=== PATIENT | female | born 1970 | race Caucasian/White ===

== ENCOUNTER 2016-10-11 10:30 | Emergency (ER) | payer OTHER ==
[2016-10-11 10:41] VITALS: BP 123/71
[2016-10-11] MEDS ORDERED: Albuterol/Ipratropium NEB.SOL* Albuterol 2.5 MG/Ipratropium 0.5 MG 3 ML INH ONE (10:48)
--- NOTE | 2016-10-11 11:03 | RAD ---
HISTORY: Cough COMPARISONS: April 18, 2013 VIEWS: 4: Frontal dual-energy and lateral views of the chest. FINDINGS: CARDIOMEDIASTINAL SILHOUETTE: The cardiomediastinal silhouette is normal. ANGELA: The angela are normal. PLEURA: The costophrenic angles are sharp. No pleural abnormalities are noted. LUNG PARENCHYMA: The lungs are clear. ABDOMEN: The upper abdomen is clear. There is no subphrenic gas. BONES AND SOFT TISSUES: No bone or soft tissue abnormalities are noted. OTHER: None. IMPRESSION: NO ACTIVE CARDIOPULMONARY DISEASE.
--- NOTE | 2016-10-11 11:58 | UC ---
Throat Pain/Nasal Ubaldo HPI - HPI Summary HPI Summary: FIVE DAYS OF PRODUCTIVE COUGH, LOWER RIB PAIN WITH COUGH, NASAL CONGESTION, WHEEZING. - History of Current Complaint Chief Complaint: UCRespiratory Stated Complaint: CHEST CONGESTION, COUGH Time Seen by Provider: 10/11/16 10:42 Hx Obtained From: Patient Hx Last Menstrual Period: 10/04/16 Onset/Duration: Gradual Onset, Lasting Days, Still Present Severity: Moderate Pain Intensity: 5 Pain Scale Used: 0-10 Numeric Cough: Productive Associated Signs & Symptoms: Positive: Hoarseness, Sinus Discomfort, Nasal Discharge - Epiglottits Risk Factors Epiglottis Risk Factors: Negative - Allergies/Home Medications Allergies/Adverse Reactions: Allergies Allergy/AdvReac Type Severity Reaction Status Date / Time Codeine AdvReac Mild nightmares Verified 10/11/16 10:41 Home Medications: Home Medications traZODone TAB* [Desyrel TAB*] 50 mg PO BEDTIME 10/11/16 [History Confirmed 10/11] PMH/Surg Hx/FS Hx/Imm Hx Previously Healthy: Yes Other History Of: Negative For: HIV, Hepatitis B, Hepatitis C, Anticoagulant Therapy - Surgical History Surgical History: Yes Surgery Procedure, Year, and Place: appendectomy - Family History Known Family History: Negative: Hypertension - Social History Occupation: Employed Full-time Lives: With Family Alcohol Use: Occasionally Substance Use Type: None Smoking Status (MU): Heavy Every Day Tobacco Smoker Type: Cigarettes Amount Used/How Often: 3/4 pack daily Cessation Counseling: Patient Advised to Stop - Immunization History Most Recent Influenza Vaccination: not this season Review of Systems Constitutional: Negative Skin: Negative Eyes: Negative ENT: Nasal Discharge, Sinus Congestion, Sinus Pain/Tenderness Respiratory: Cough Cardiovascular: Negative Gastrointestinal: Negative Genitourinary: Negative Motor: Negative Neurovascular: Negative Musculoskeletal: Negative Neurological: Negative Psychological: Negative All Other Systems Reviewed And Are Negative: Yes Physical Exam Triage Information Reviewed: Yes Appearance: Well-Appearing, No Pain Distress, Well-Nourished Vital Signs: Initial Vital Signs Temp 97.9 F 10/11/16 10:36 Pulse 84 10/11/16 10:36 Resp 14 10/11/16 10:36 BP 123/71 10/11/16 10:36 Pulse Ox 97 10/11/16 10:36 Vital Signs Reviewed: Yes Eye Exam: Normal ENT: Positive: Normal ENT inspection, Nasal congestion, TM bulging, TM dull Dental Exam: Normal Neck exam: Normal Neck: Positive: Supple, Nontender, No Lymphadenopathy Respiratory: Positive: Chest non-tender, No respiratory distress, No accessory muscle use, Wheezing Cardiovascular Exam: Normal Cardiovascular: Positive: RRR, No Murmur, Pulses Normal Abdominal Exam: Normal Musculoskeletal Exam: Normal Musculoskeletal: Positive: Strength Intact Neurological Exam: Normal Psychological Exam: Normal Skin Exam: Normal Throat Pain/Nasal Course/Dx - Differential Dx/Diagnosis Differential Diagnosis/HQI/PQRI: Sinusitis, Tonsillitis, URI Provider Diagnoses: SINUSITIS; BRONCHITIS Discharge - Discharge Plan Condition: Stable Disposition: HOME Prescriptions: Albuterol HFA INHALER* [Ventolin HFA Inhaler*] 1 - 2 puff INH Q6H PRN #1 mdi PRN Reason: Wheezing DOXYcycline CAP(*) [DOXYcycline 100MG CAP(*)] 100 mg PO BID #20 cap predniSONE TAB* [Deltasone TAB*] 10 mg PO DAILY #28 tab Patient Education Materials: Sinusitis (ED), Acute Bronchitis (ED), Bronchospasm (ED) Referrals: Kristyn Prieto MD [Primary Care Provider] -
== END 2016-10-11 11:35 | disposition home or self-care (01) ==
LOC: UCCORT 10:30
DX: J32.9 Chronic sinusitis, unspecified (principal); J40 Bronchitis, not specified as acute or chronic; Z88.5 Allergy status to narcotic agent; F17.210 Nicotine dependence, cigarettes, uncomplicated
CPT/HCPCS: 71020; 99212; A9270-GY; G0463

== ENCOUNTER 2017-03-19 09:54 | Emergency (ER) | payer OTHER ==
[2017-03-19 10:49] VITALS: BP 142/90
--- NOTE | 2017-03-19 10:57 | UC ---
Respiratory Complaint HPI - HPI Summary HPI Summary: 46F presents with cough for 3 days. has history of asthma and ran out of inhaler. is a smoker. She admits to sore throat and sinus congestion. She denies any ear pain. She admits to occasionally SOB but denies any chest pain. She denies any muscle aches or fevers. She tried her nebulizer yesterday but it made it worst the cough. - History of Current Complaint Chief Complaint: UCGeneralIllness Stated Complaint: SORE THROAT,COUGH,CONGESTION Time Seen by Provider: 03/19/17 10:50 Hx Last Menstrual Period: ablation Pain Intensity: 2 - Allergies/Home Medications Allergies/Adverse Reactions: Allergies Allergy/AdvReac Type Severity Reaction Status Date / Time No Known Allergies Allergy Verified 03/19/17 10:49 Home Medications: Home Medications Albuterol HFA INHALER* [Ventolin HFA Inhaler*] 2 puff INH Q4H PRN 03/19/17 [ History Confirmed 03/19/17] Bp Med 1 tab PO DAILY 03/19/17 [History Confirmed 03/19/17] Omeprazole CAP* [Prilosec CAP* 20 MG] 20 mg PO DAILY 03/19/17 [History Confirmed 03/19/17] PMH/Surg Hx/FS Hx/Imm Hx Endocrine History: Other Other Endocrine History: no DM Cardiovascular History: Hypertension Respiratory History: Asthma Other History Of: Negative For: HIV, Hepatitis B, Hepatitis C, Anticoagulant Therapy - Surgical History Surgical History: Yes Surgery Procedure, Year, and Place: appendectomy. Ablation - Family History Known Family History: Negative: Hypertension - Social History Alcohol Use: Occasionally Substance Use Type: None Smoking Status (MU): Heavy Every Day Tobacco Smoker Type: Cigarettes Amount Used/How Often: 3/4 pack daily - Immunization History Most Recent Influenza Vaccination: not this season Review of Systems Constitutional: Negative ENT: Sore Throat, Sinus Congestion Respiratory: Shortness Of Breath, Cough Cardiovascular: Negative All Other Systems Reviewed And Are Negative: Yes Physical Exam Triage Information Reviewed: Yes Appearance: Well-Appearing Vital Signs: Initial Vital Signs Temp 98.5 F 03/19/17 10:43 Pulse 90 03/19/17 10:43 Resp 16 03/19/17 10:43 BP 142/90 03/19/17 10:43 Pulse Ox 98 03/19/17 10:43 Eye Exam: Normal ENT: Positive: Pharynx normal, Nasal congestion, TMs normal Neck: Positive: Supple, Nontender, No Lymphadenopathy Respiratory: Positive: Decreased breath sounds, Wheezing - mild Cardiovascular: Positive: RRR Abdomen Description: Positive: Nontender, Soft Bowel Sounds: Positive: Present Musculoskeletal Exam: Normal Neurological Exam: Normal Psychological Exam: Normal Skin Exam: Normal UC Diagnostic Evaluation - Laboratory O2 Sat by Pulse Oximetry: 98 Respiratory Course/Dx - Course Course Of Treatment: 46F presents with cough for 3 days. has history of asthma and ran out of inhaler. is a smoker. She admits to sore throat and sinus congestion. She denies any ear pain. She admits to occasionally SOB but denies any chest pain. She denies any muscle aches or fevers. She tried her nebulizer yesterday but it made it worst the cough. on exam pharynx normal. lungs mild wheezing. no resp distress on exam. due to asthma with smoking will treat with zpack, inhaler and prednisone. medication reviewed. patient has elevated blood pressure so will have follow up with primary as has history of HTN and is on medication. patient understand and agrees with plan. - Differential Dx/Diagnosis Differential Diagnosis/HQI/PQRI: Bronchitis, Exacerbation Of COPD, Influenza, Lower Resp Infection, Pneumothorax Provider Diagnoses: upper respiratory infection, asthma, elevated blood pressure Discharge - Discharge Plan Condition: Good Disposition: HOME Prescriptions: Albuterol HFA INHALER* [Ventolin HFA Inhaler*] 1 puff INH Q4H PRN #1 mdi PRN Reason: Sob/Wheezing Azithromycin TAB* [Zithromax TAB (Z-ROMAINE) 250 mg #6 tabs] 2 tab PO .TODAY, THEN 1 DAILY #1 romaine predniSONE TAB* [Deltasone TAB*] 50 mg PO DAILY #5 tab Patient Education Materials: Upper Respiratory Infection (ED) Referrals: Kristyn Prieto MD [Primary Care Provider] - Additional Instructions: Use inhaler up to two puffs every 4 hours for cough and wheezing Take steroid once a day for 5 days Take antibiotic two tablet first day and one tablet next 4 days Take Tylenol or ibuprofen for pain every 6 hours Return to ED if develop severe shortness of breath, worsening chest pain, or any new or worsening symptoms
== END 2017-03-19 11:05 | disposition home or self-care (01) ==
LOC: UCCORT 09:54
DX: J06.9 Acute upper respiratory infection, unspecified (principal); J45.909 Unspecified asthma, uncomplicated; I10 Essential (primary) hypertension; F17.210 Nicotine dependence, cigarettes, uncomplicated
CPT/HCPCS: 99212; G0463

== ENCOUNTER 2017-07-23 10:45 | Emergency (ER) | payer OTHER ==
[2017-07-23 12:19] VITALS: BP 126/80
--- NOTE | 2017-07-23 12:39 | UC ---
Lower Extremity/Ankle HPI - HPI Summary HPI Summary: 47 y/o female presents to the urgent care c/o left lateral side of ankle w/ pain for the past 3 days. Pt reports she noticed a bump in the lateral side that is swollen and painful at touch. - History of Current Complaint Chief Complaint: UCLowerExtremity Stated Complaint: LT ANKLE COMP Time Seen by Provider: 07/23/17 12:36 Hx Obtained From: Patient Hx Last Menstrual Period: ablation Onset/Duration: Gradual Onset Pain Intensity: 2 - Allergies/Home Medications Allergies/Adverse Reactions: Allergies Allergy/AdvReac Type Severity Reaction Status Date / Time No Known Allergies Allergy Verified 07/23/17 12:02 Home Medications: Home Medications Amlodipine Besylate [Norvasc 5 mg tab] 5 mg PO DAILY 07/23/17 [History Confirmed 07/23/17] Ibuprofen TAB* [Advil TAB*] 400 mg PO Q6H PRN 07/23/17 [History Confirmed ] LevoCETirizine TAB (NF) [Xyzal TAB (NF)] 5 mg PO DAILY PRN 07/23/17 [History Confirmed 07/23/17] PMH/Surg Hx/FS Hx/Imm Hx Other History Of: Negative For: HIV, Hepatitis B, Hepatitis C, Anticoagulant Therapy - Surgical History Surgical History: Yes Surgery Procedure, Year, and Place: appendectomy. Ablation - Family History Known Family History: Negative: Hypertension - Social History Alcohol Use: Occasionally Substance Use Type: None Smoking Status (MU): Heavy Every Day Tobacco Smoker Type: Cigarettes Amount Used/How Often: 1 pack daily - Immunization History Most Recent Influenza Vaccination: not this season Physical Exam - Summary Physical Exam Summary: Vital Signs Reviewed: Yes Appearance: Well-Appearing, No Pain Distress, Well-Nourished, Eyes: Positive: Conjunctiva Clear - PERRLA< LADY, fundi grossly WNL ENT: Positive: Normal ENT inspection, Hearing grossly normal, Pharynx normal, TMs normal, Uvula midline Neck: Positive: Supple, Nontender, No Lymphadenopathy Respiratory: Positive: Chest non-tender, Lungs clear, Normal breath sounds, No respiratory distress Cardiovascular: Positive: RRR, No Murmur, Pulses Normal, Brisk Capillary Refill Abdomen Description: Positive: Nontender, No Organomegaly, Soft. Negative: CVA Tenderness (R), CVA Tenderness (L) Bowel Sounds: Positive: Present Extremities: R/L extremity with/without deformity or asymmetry when compared to the R/L. No soft tissue swelling or edema. No overlying erythema, warmth, discoloration. No lesions or break in skin integrity. Diameter of calves cm. Soft tissues of posterior lower legs are soft, supple, nontender and no palpable cords or evidence of thrombophlebitis. No evidence of gangrene or compartment syndrome. Medial thigh is without soft tissue swelling or tender to palpation. Negative Homans sign. Possible superficial thrombophlebitis with palpable, tender cords. No proximal lymphangitis or lymphadenopathy. Neurological Exam: Normal Psychological Exam: Normal Skin Exam: Normal Triage Information Reviewed: Yes Vital Signs: Initial Vital Signs Temp 98.8 F 07/23/17 12:05 Pulse 75 07/23/17 12:05 Resp 16 07/23/17 12:05 BP 126/80 07/23/17 12:05 Pulse Ox 98 07/23/17 12:05 Lower Extremity Course/Dx - Differential Dx/Diagnosis Provider Diagnoses: 1- left distal lower leg thrombophlebitis Discharge - Discharge Plan Condition: Stable Disposition: HOME Prescriptions: Aspirin TAB* [Aspirin 325 MG TAB*] 325 mg PO BID #14 tab Patient Education Materials: Superficial Thrombophlebitis (ED) Referrals: Kristyn Prieto MD [Primary Care Provider] - 1 Week Additional Instructions: 1-Please take Aspirin PO as instructed after meals to alleviate pain and swelling. Increase fluid intake, eat well, rest and avoid strenuous exercise or standing for long period of time. elevate your leg. 2- Apply warm compresses to alleviate symptoms. 3-If symptoms do not improve or worsen please f/u with your PCP for further evaluation and treatment. - Billing Disposition and Condition Condition: STABLE Disposition: Home
== END 2017-07-23 13:10 | disposition home or self-care (01) ==
LOC: UCCORT 10:45
DX: I80.3 Phlebitis and thrombophlebitis of lower extremities, unspecified (principal); F17.210 Nicotine dependence, cigarettes, uncomplicated
CPT/HCPCS: 99212; G0463

== ENCOUNTER 2018-08-19 09:50 | Day surgery (SDC) | payer OTHER ==
[~2018-08-19 09:50] MED LIST: Buffered Lidocaine 1% SYRIN* 1 ML/SYRINGE INTRADERM ONE; Dexamethasone IV* 4 MG/ML 1 ML (4 MG) IV SLOW PU ONE; Famotidine IV* 10 MG/ML 2 ML (20 mg) IV SLOW PU ONE; Lactated Ringers 1000 ML Bag* 1,000 ML IV SCH; Sodium Citrate/Citric Acid* 15 ML UDC PO ONE
[2018-08-19] MEDS ORDERED: Dexamethasone IV* 4 MG/ML 1 ML (4 MG) ONE (10:00)
[2018-08-19] MEDS ORDERED: Famotidine IV* 10 MG/ML 2 ML (20 mg) ONE (10:01)
[2018-08-19] MEDS ORDERED: Bupivacaine 0.25% SDV PF* 10 ML VIAL INJ ONE ×2 (11:45→12:43)
[2018-08-19] MEDS ORDERED: fentaNYL* 50 MCG/ML 2 ML VIAL (100 MCG VIAL) ONE (12:10)
[2018-08-19] MEDS ORDERED: Propofol* 10 MG/ML 20 ML BTL ONE ×2 (12:10→12:21)
[2018-08-19] MEDS ORDERED: Lidocaine 2% PF * 5 ML VIAL ONE (12:10)
[2018-08-19] MEDS ORDERED: Midazolam* 1 MG/ML 2 ML VIAL (2 MG) ONE (12:17)
[2018-08-19] MEDS ORDERED: ceFAZolin 2 GM in NS PREMIX(*) 2 GM/100 ML BAG IVPB ONE (12:34)
[2018-08-19] MEDS ORDERED: Ondansetron INJ* 2 MG/ML VIAL IV PRN (13:10)
[2018-08-19] MEDS ORDERED: Ketorolac INJ* 30 MG/ML 1 ML VIAL IV PRN (13:10)
[2018-08-19] MEDS ORDERED: fentaNYL* 50 MCG/ML 2 ML VIAL (100 MCG VIAL) IV PRN (13:10)
[2018-08-19] MEDS ORDERED: Naloxone* 0.4 MG/ML 1 ML VIAL IV PRN (13:10)
[2018-08-19 14:12] VITALS: BP 126/90
--- NOTE | 2018-08-19 14:45 | OP ---
DATE OF OPERATION: 08/19/18 - [facility] DATE OF : 70 SURGEON: Eduardo Hurtado MD. MAPLE SYRUP MAKER: OMER An. An court assistant was needed for the entirety of the procedure to aid in positioning of the arm. ANESTHESIOLOGIST: Dr. Wilkins. ANESTHESIA: General. PRE-OP DIAGNOSIS: Right index finger deep soft tissue mass at the site of the flexor digitorum profundus tendon insertion. POST-OP DIAGNOSIS: Right index finger deep soft tissue mass at the site of the flexor digitorum profundus tendon insertion. OPERATIVE PROCEDURES: 1. Excision of right index finger deep soft tissue mass at the insertion of the FDP tendon. 2. Repair of the right index finger flexor digitorum profundus tendon with 2-0 Prolene pull-through suture. INDICATIONS: Viv is 48. She has an extremely painful mass identified on MRI at the insertion of the FDP tendon. I told her I would probably have to release the majority of the tendon to be able to excise the mass. She wanted me to do it as it was extremely painful. She understands the risk of tendon rupture necessitating either 2-stage repair or probably a fusion of the DIP joint. She wants to proceed. ESTIMATED BLOOD LOSS: 2 mL. COMPLICATIONS: None. FINDINGS: See above and below. DESCRIPTION OF PROCEDURE: Viv was seen in the preoperative holding area. The correct side, site, and procedure were identified. We came back to the operating room. The arm was prepped and draped in the usual fashion. A time- out was performed. I performed a digital block proximally with 0.25% plain Marcaine. We then placed the arm in the lead hand. I made a Bryanna incision over the DIP joint of the right index finger, starting in the midline centrally and then raising an ulnarly based flap. That was sewn back with 4-0 nylon suture as the flaps raised right off the flexor tendon sheath. The digital nerve was protected. The mass was readily apparent. I placed in Ragnell retractors. I used the [place] blade to perform a marginal excision. The mass was at the insertion and then draped over the radial aspect of the volar plate. There was some erosion of the volar plate proximally and distally. I excised it in its entirety and handed off as specimen. Once I had excised it, about 80% of the tendon had been released. I placed a 4-0 Ethibond suture in the end of the tendon just to keep it from retracting. I went ahead and placed a 2-0 Prolene whipstitch at the last 1.5 cm to 2 cm of the tendon. I used Werner needles through the bone and exiting out the nail plate dorsally through the sterile matrix to set maximum tension as I tied the 2-0 Prolene up over the nail plate dorsally to repair the tendon. I did go ahead and try to augment that with another 3-0 Prolene suture, but after I put that in, there was just too much tension on the tendon repair and so I just removed that and then it had excellent tension, so I left it with just the one pull-through suture. After the tendon bit had been repaired and I had removed the mass, I was very pleased with the repair. Please note that I had done everything possible to excise anything that looked like it could be related to the mass during the excision and I had roughened up the bony footprint of the tendon insertion before I had passed the Werner needles through. There were some reactive changes in the palmar aspect of the distal phalanx where the mass had been sitting. This was all removed and freshened up with the curette and rongeur. With the mass excised and the tendon repaired, we irrigated out the wound. Skin was closed with 4-0 nylon suture. A dorsal blocking splint with the wrist in neutral to slight flexion and the MP joints in full flexion and the IP joint straight was applied. Tourniquet was deflated. The finger pinked up immediately. She was taken to the recovery room in stable condition. [id number]/[facility] #: [id number] CHANTE
== END 2018-08-19 14:28 | disposition home or self-care (01) ==
LOC: OREAST 09:50
PROVIDERS: ATTEND Orthopaedic Surgery Hand Surgery
DX: D21.11 Benign neoplasm of connective and other soft tissue of right upper limb, including shoulder (principal); I10 Essential (primary) hypertension; J45.909 Unspecified asthma, uncomplicated; Z72.0 Tobacco use; K21.9 Gastro-esophageal reflux disease without esophagitis
CPT/HCPCS: 81025; 88305; J0690; J1100; J2250; J2704; J3010; J3490

== ENCOUNTER 2018-12-07 14:06 | Emergency (ER) | payer OTHER ==
--- NOTE | 2018-12-07 14:18 | UC ---
Respiratory Complaint HPI - HPI Summary HPI Summary: 48 yo female presents with cough. She tells me that for the past 1.5 weeks she has had an intermittently productive cough. Over the last 2-3 days has had right rib pain that is worse with deep breaths, coughing, and twisting. She has felt feverish, but has not taken her temperature. She has a history of asthma/ copd and has albuterol inhaler and nebulizer at home that she has been using with short term relief. She is still smoking daily. Denies sinus symptoms, sore throat, SOB, chest pain, abdominal pain, n/v. - History of Current Complaint Stated Complaint: COUGH RIGHT SIDE BACK/RIBS Time Seen by Provider: 12/07/18 14:17 Hx Obtained From: Patient Hx Last Menstrual Period: ablation Onset/Duration: Gradual Onset Severity Initially: Mild Severity Currently: Moderate Pain Intensity: 5 Pain Scale Used: 0-10 Numeric Character: Cough: Nonproductive - Allergies/Home Medications Allergies/Adverse Reactions: Allergies Allergy/AdvReac Type Severity Reaction Status Date / Time No Known Allergies Allergy Verified 12/07/18 14:21 PMH/Surg Hx/FS Hx/Imm Hx Cardiovascular History: Hypertension Respiratory History: COPD, Asthma GI/ History: Gastroesophageal Reflux Other History Of: Negative For: HIV, Hepatitis B, Hepatitis C, Anticoagulant Therapy - Surgical History Surgical History: Yes Surgery Procedure, Year, and Place: appendectomy;1978, [facility]. UTERINE Ablation,2016, [facility]. BREAST [id number], 1999, [facility] - Family History Known Family History: Positive: Diabetes Negative: Hypertension - Social History Lives: With Family Alcohol Use: Weekly Alcohol Amount: 6-8 Substance Use Type: None Smoking Status (MU): Heavy Every Day Tobacco Smoker Type: Cigarettes Amount Used/How Often: 1 pack daily for 30 yrs - Immunization History Most Recent Influenza Vaccination: not this season Review of Systems All Other Systems Reviewed And Are Negative: No Constitutional: Positive: Negative Skin: Positive: Negative Eyes: Positive: Negative ENT: Positive: Negative Respiratory: Positive: Cough Cardiovascular: Positive: Negative Gastrointestinal: Positive: Negative Neurovascular: Positive: Negative Neurological: Positive: Negative Psychological: Positive: Negative Physical Exam - Summary Physical Exam Summary: GENERAL: NAD. WDWN. No pain distress. SKIN: No rashes, sores, lesions, or open wounds. HEENT: Head: AT/NC Eyes: Conjunctiva clear without inflammation or discharge. Ears: Hearing grossly normal. TMs intact, no bulging, erythema, or edema. Nose: Nasal mucosa pink and moist. NTTP maxillary and frontal sinus. Throat: Posterior oropharynx without exudates, erythema, or tonsillar enlargement. Uvula midline. NECK: Supple. Nontender. No lymphadenopathy. CHEST: Mild wheezing throughout. No r/r. No accessory muscle use. Breathing comfortably and in no distress. CV: RRR. Pulses intact. Cap refill <2seconds MSK: Right ribs ~8th rib with TTP at midaxillary and anterior aspect. Pain at site with truncal twisting NEURO: Alert. PSYCH: Age appropriate behavior. Triage Information Reviewed: Yes Vital Signs: Vital Signs: Temp Pulse Resp BP Pulse Ox 99.1 F 80 16 125/71 94 12/07/18 14:17 12/07/18 14:17 12/07/18 14:17 12/07/18 14:17 12/07/18 14:17 Vital Signs: Temp Pulse Resp BP Pulse Ox 99.1 F 80 16 125/71 96 12/07/18 14:17 12/07/18 15:13 12/07/18 14:17 12/07/18 14:17 12/07/18 15:13 Vital Signs Reviewed: Yes Diagnostics - Radiology CXR Radiology Interpretation Completed By: Radiologist Summary of Radiographic Findings: IMPRESSION: No active cardiopulmonary disease is noted. No changes noted since previous exam of October 11, 2016. Respiratory Course/Dx - Course Course Of Treatment: CXR as above. In the clinic she was given dexamethasone and duoneb treatment with good relief. She experienced easier to take a deep breath. Lung sounds improved. Suspect bronchitis. - Differential Dx/Diagnosis Provider Diagnosis: Bronchitis Discharge ED - Sign-Out/Discharge Documenting (check all that apply): Patient Departure All imaging exams completed and their final reports reviewed: Yes - Discharge Plan Condition: Stable Disposition: HOME Prescriptions: Azithromycin TAB* [Zithromax TAB (Z-ROMAINE) 250 mg #6 tabs] 2 tab PO .TODAY, THEN 1 DAILY #1 romaine Benzonatate CAP* [Tessalon 100 MG CAP*] 100 mg PO TID PRN #21 cap PRN Reason: Cough Cyclobenzaprine TAB* [Flexeril 10 MG TAB*] 10 mg PO BID PRN #10 tab PRN Reason: Pain - Mild predniSONE TAB* [Deltasone 20 MG TAB*] 40 mg PO DAILY #10 tab Patient Education Materials: Acute Bronchitis (ED) Referrals: Kristyn Prieto MD [Primary Care Provider] - Additional Instructions: If you develop a fever, shortness of breath, chest pain, new or worsening symptoms - please call your PCP or go to the ED immediately. - Billing Disposition and Condition Condition: STABLE Disposition: Home
[2018-12-07 14:21] VITALS: BP 125/71
[2018-12-07] MEDS ORDERED: Albuterol/Ipratropium NEB.SOL* Albuterol 2.5 MG/Ipratropium 0.5 MG 3 ML INH ONE (14:34)
[2018-12-07] MEDS ORDERED: Dexamethasone TAB* 4 MG PO ONE (14:34)
== END 2018-12-07 15:22 | disposition home or self-care (01) ==
LOC: UCCORT 14:06
DX: J44.9 Chronic obstructive pulmonary disease, unspecified (principal); I10 Essential (primary) hypertension; F17.210 Nicotine dependence, cigarettes, uncomplicated
CPT/HCPCS: 71046; 99213; A9270-GY; G0463; J8540